=== PATIENT | male | born 1975 | race Caucasian/White ===

== ENCOUNTER 2017-11-18 12:05 | Day surgery (SDC) | payer OTHER, SELFPAY ==
[2017-11-13 10:05] VITALS: BMI 50.7
[2017-11-18] VITALS (15 sets, daily range): BP systolic 121–160; BP diastolic 81–113; PULSE 51–69; RESP 12–20; TEMP 36.1–36.8; O2SAT 96–100; BMI 50.7
--- NOTE | 2017-11-18 13:22 | PM.PREOP ---
Pre-operative Note Interval Note Pre-op Check: History & Physical Reviewed by Physician
[2017-11-18] MEDS: LACTATED RINGERS 1,000 ML 42 ML IV (13:36)
[2017-11-18] MEDS: CEFAZOLIN VIAL 3 GM in SODIUM CHLORIDE 0.9% 100 ML 200 ML IV (13:53)
--- NOTE | 2017-11-18 14:36 | SUR.OPER ---
Supine on padded OR bed, head on pillow, arms secured on padded arm boards at <90 degrees abduction, legs uncrossed, safety belt at abdomen, tape over blanket over lower legs.
[2017-11-18] MEDS: BUPIVACAINE 0.5% W/ EPI (PF) 30 ML VIAL INJ (15:05)
[2017-11-18] MEDS: HYDROMORPHONE 2 MG INJ IV ×3 (15:10→15:46)
--- NOTE | 2017-11-18 15:26 | PM.OP.1 ---
Operative Date/Time/Diagnoses - Date of procedure: 11/18/17 Time of procedure: 14:03 Pre-op diagnosis: right knee medial meniscus tear, partial acl tear Post-op diagnosis: same Procedure & Clinicians Same procedure as scheduled: No Surgeon: Lynne Mark Mailing Machine Helper: Dennis Larios Anesthesia Type: General Operative Notes Closure Type: primary Specimen(s): none sent Estimated Blood Loss (mL): 30 Blood products transfused: none Procedure in detail: Patient was brought to the operating room. Patient's right lower extremity prepped and draped in a standard sterile fashion. A time-out was performed. IV Ancef was administered. A 3 portal right knee arthroscopy was performed. An assistance was used to used because of the patient's large body habitus. Tourniquet was placed but not inflated. The suprapatellar pouch had no loose bodies. 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 There was areas of grade 2 chondromalacia along the tibial plateau. His examination under anesthesia was stable. His notch had a partial tear in the anterior cruciate ligament with residual ligament being stable. It was stable to mechanical testing. The lateral compartment had mild lateral compartment arthritic change. There was no lateral meniscus tear. A partial medial meniscectomy was performed with a mechanical shaver. A small amount of chondromalacia on the medial femoral condyle and trochlear groove and undersurface of the patella was gently debrided with the shaver. I carefully probed the ACL anteriorly along the most anterior insertion there was a small fragment consistent with a partial-thickness tear. There was a small loose fragment associated with this which was carefully debrided. The residual ligament was noted to be stable. The knee was irrigated with normal saline. The portals were closed with interrupted nylon. Marcaine was injected. Steri-Strips were applied and the wound was dressed sterilely. Complications none. Complications: none Condition: stable Disposition: same day surgery Plan for aftercare: Weightbearing as tolerated right lower extremity. Ice. okay to work on progressive range of motion and strengthening.
--- NOTE | 2017-11-18 16:31 | SUR.PHASEII ---
pt to opd at 1606, pain 4/10 , dressing dci, ice to surgical site , at side , pt sleepy
--- NOTE | 2017-11-18 16:35 | SUR.PHASEII ---
pt able to lift leg and move toes ,toes warm to touch
--- NOTE | 2017-11-18 16:51 | SUR.PHASEII ---
assumed care from rossy molina, nausea resolved, medicateed with po pain med- see emar.
[2017-11-18] MEDS: OXYCODONE IR 5 MG TABLET PO (16:55)
--- NOTE | 2017-11-18 17:06 | SUR.PHASEII ---
pt ready to go voiced an understanding of d/c instructions, assisted to dress by , dressing remained c/d/i.
--- NOTE | 2017-11-18 17:26 | SUR.PHASEII ---
pt ready for discharge, assisted to br to void, and left unit in stable condition.
== END 2017-11-18 17:20 | disposition home or self-care (01) ==
PROVIDERS: PCP Family Medicine; Visit Provider Orthopaedic Surgery
PROC: (CPT 29870; principal; 2017-11-18 13:45)
DX: S83.241A Other tear of medial meniscus, current injury, right knee, initial encounter (principal); S83.511A Sprain of anterior cruciate ligament of right knee, initial encounter; M94.261 Chondromalacia, right knee; E66.9 Obesity, unspecified; Z68.43 Body mass index [BMI] 50.0-59.9, adult; G47.33 Obstructive sleep apnea (adult) (pediatric); F31.9 Bipolar disorder, unspecified; I10 Essential (primary) hypertension; J45.909 Unspecified asthma, uncomplicated; Y93.H3 Activity, building and construction
CPT/HCPCS: 29881; J0690; J1170; J1885; J2250; J2704; J3010